=== PATIENT | female | born 1990 | race African-American/Black ===

== ENCOUNTER 2018-01-31 04:04 | Emergency (ER) | payer BC, MEDICAID ==
[~2018-01-31] VITALS: Ht 154.9 cm; Wt 72.6 kg
[~2018-01-31 04:04] MED LIST: ZOFRAN4 MG ORAL
[2018-01-31] MEDS ORDERED: NAPROSYN500 M1 ORAL (04:49)
[2018-01-31] MEDS ORDERED: HYDROCODON-ACE1 EA15 ORAL (04:49)
--- NOTE | 2018-01-31 04:50 | Emergency Room Report ---
History of Present Illness General Chief Complaint: Chest Pain Source: Patient Present Illness HPI Is a 27-year-old female with no significant past medical history. She presents which apparently left-sided chest pain. She's been having coughing congestion. Onset tonight. Worse when she take a deep breath. Worse when she palpated. Worse when she moved. diaphoresis. No other complaint. Allergies: Coded Allergies: No Known Allergies (Unverified , 10/29/14) Patient History Past Medical History: see triage record, old chart reviewed Past Surgical History: none Pertinent Family History: none Social History: Denies: smoking Last Menstrual Period: jan 16 Now: No : 1 Immunizations: other Reviewed Nursing Documentation: PMH: Agreed, PSxH: Agreed Nursing Documentation-PMH Past Medical History: No Stated History Review of Systems Eye: Denies: eye pain, blurred vision ENT: Reports: nose congestion, throat pain, Denies: ear pain, throat swelling Respiratory: Reports: cough, Denies: shortness of breath Cardiovascular: Reports: chest pain, Denies: palpitations Gastrointestinal: Denies: abdominal pain, diarrhea, nausea, vomiting Musculoskeletal: Denies: back pain, joint pain Skin: Denies: rash Neurological: Denies: headache, numbness Endocrine: Denies: increased thirst, increased urine Hematologic/Lymphatic: Denies: easy bruising All Other Systems: negative except mentioned in HPI Physical Exam Vital Signs Date Time Temp Pulse Resp B/P (MAP) Pulse Ox O2 Delivery O2 Flow Rate FiO2 01/31/18 04:20 98.3 79 18 106/71 99 Room Air 98.2 vitals normal Sp02 EP Interpretation: reviewed, normal General Appearance: well appearing, no apparent distress, alert Head: normocephalic, atraumatic Eyes: bilateral eye PERRL, bilateral eye EOMI ENT: hearing grossly normal, normal pharynx Neck: full range of motion, supple, no meningismus Respiratory: lungs clear, normal breath sounds, other - left upper chest wall tenderness Cardiovascular #1: regular rate, rhythm, no murmur Gastrointestinal: normal bowel sounds, non tender, no mass, no organomegaly, no bruit, non-distended Musculoskeletal: back normal, gait/station normal, normal range of motion Psychiatric: mood/affect normal Skin: warm/dry Medical Decision Making Diagnostic Impression: Primary Impression: Costochondral chest pain ER Course Patient with chest pain. This is musculoskeletal in nature. No evidence of ACS , PE, dissection to name a few. We'll discharge home. Patient is not hypoxic, tachycardic or tachypneic. Not on control pill. No family history of DVT or PE. EKG Diagnostic Results Rate: normal Rhythm: NSR ST Segments: no acute changes Rhythm Strip Diag. Results Rhythm Strip Time: 04:49 EP Interpretation: yes Rate: 74 Rhythm: NSR, no PVC's, no ectopy Last Vital Signs Date Time Temp Pulse Resp B/P (MAP) Pulse Ox O2 Delivery O2 Flow Rate FiO2 01/31/18 04:35 79 18 Room Air 01/31/18 04:20 98.3 106/71 99 98.2 Status: unchanged Disposition: HOME, SELF-CARE Condition: Stable Scripts Naproxen* (NAPROSYN*) 500 Mg Tablet 500 MG ORAL TWICE A DAY, #30 TAB Prov: VESTA CAMPBELL M.D. 01/31/18 Hydrocodone/Acetaminophen 5-325* (HYDROCODONE/ACETAMINOPHEN 5-325*) 1 Each Tablet 1 TAB ORAL Q6H Y for For Pain, #10 TAB 0 Refills Prov: VESTA CAMPBELL M.D. 01/31/18 Referrals: NOT CHOSEN [facility]/,REFERRING (PCP) Additional Instructions: Follow-up with your doctor in 7 days. Return if symptom worsen. VESTA CAMPBELL M.D. Jan 31, 2018 04:50
[2018-01-31 04:57] VITALS: BP 110/74
[2018-01-31 04:58] VITALS: BP 106/71
--- NOTE | 2018-02-03 21:29 | Cardiology Report ---
APPROVED REPORT EKG Measurement Heart [id number] Normal sinus rhythm Normal ECG
== END 2018-01-31 04:59 | disposition home or self-care (01) ==
LOC: EMR 04:34
DX: R07.89 Other chest pain (principal)
CPT/HCPCS: 93005; 99284